=== PATIENT | female | born 1960 | race Caucasian/White ===

== ENCOUNTER → 2021-11-07 | Day surgery (SDC) | payer MEDICARE ==
[~2021-11-07] VITALS: Ht 165.1 cm; Wt 86.2 kg
[~2021-11-07] MED LIST: ATORVASTATIN CA20 MG PO; BUSPAR5 MG PO; CITALOPRAM HBR40 MG PO; DICLOFENAC SODI75 MG PO; ELAVIL50 MG PO; LISINOPRIL10 MG PO; METOPROLOL SUC100 MG PO
== END | disposition home or self-care (01) ==
LOC: FAS 08:31
DX: R19.7 Diarrhea, unspecified (principal); K21.9 Gastro-esophageal reflux disease without esophagitis; I10 Essential (primary) hypertension; E78.00 Pure hypercholesterolemia, unspecified; E66.9 Obesity, unspecified; Z80.0 Family history of malignant neoplasm of digestive organs; Z86.010 Personal history of colon polyps; Z88.8 Allergy status to other drugs, medicaments and biological substances; Z87.891 Personal history of nicotine dependence; Z68.31 Body mass index [BMI] 31.0-31.9, adult
CPT/HCPCS: J2250; J2704; J7120